=== PATIENT | female | born 1990 | race Caucasian/White ===

== ENCOUNTER 2017-04-19 16:32 | Emergency (ER) | payer OTHER ==
[2017-04-19 16:35] VITALS: BP 118/70; PULSE 78; TEMP 98; BMI 25.0
--- NOTE | 2017-04-19 17:27 | PDOC ---
History of Present Illness - General Chief Complaint: Toothache Stated Complaint: TOOTH PAIN Time Seen by Provider: 04/19/17 17:01 History Source: Patient Exam Limitations: No Limitations - History of Present Illness Initial Comments: 04/19/17 17:12 c/o left lower toothache with swelling today, pain started 4 days ago Past History - Past Medical History Allergies/Adverse Reactions: Allergies Allergy/AdvReac Type Severity Reaction Status Date / Time No Known Allergies Allergy Verified 04/19/17 16:33 Home Medications: Ambulatory Orders Oxycodone HCl/Acetaminophen [Percocet 5-325 mg Tablet] 1 - 2 tab PO Q4H PRN #30 tablet MDD 8 03/06/16 Amoxicillin - [Amoxicillin 500mg Capsule -] 500 mg PO TID #21 capsule 04/19/17 Chlorhexidine Gluconate [Peridex -] 15 ml MM TID #473 ml 04/19/17 Anemia: No Asthma: No Cancer: No Cardiac Disorders: No CVA: No COPD: No CHF: No Dementia: No Diabetes: No GI Disorders: No Disorders: No HTN: No Hypercholesterolemia: No Liver Disease: No Seizures: No Thyroid Disease: No - Surgical History Abdominal Surgery: Yes Appendectomy: No Cardiac Surgery: No Cholecystectomy: Yes Lung Surgery: No Neurologic Surgery: No Orthopedic Surgery: No - Immunization History Immunization Up to Date: Yes - Suicide/Smoking/Psychosocial Hx Smoking History: Never smoked Have you smoked in the past 12 months: No Hx Alcohol Use: No Drug/Substance Use Hx: No Substance Use Type: None *Physical Exam - Vital Signs Last Vital Signs Temp Pulse Resp BP Pulse Ox 98.0 F 78 18 118/70 100 04/19/17 16:33 04/19/17 16:33 04/19/17 16:33 04/19/17 16:33 04/19/17 16:33 - Physical Exam General Appearance: Yes: Nourished, Appropriately Dressed HEENT: positive: EOMI, HARDEEP, TMs Normal, Other (left lower jaw with swelling, minimal tenderness to palpation, no abscess, tender around the gum line ) Neck: positive: Supple. negative: Tender Respiratory/Chest: positive: Lungs Clear, Normal Breath Sounds. negative: Chest Tender Medical Decision Making - Medical Decision Making 04/19/17 17:27 cc: toothache with swelling to the left lower jaw no fever no chills pt is able to tolerate fluids well pt refused any pain medication states the pain is tolerable. pt has a dentist to follow with and will call tomorrow *DC/Admit/Observation/Transfer Diagnosis at time of Disposition: Tooth infection - Discharge Dispostion Disposition: HOME Condition at time of disposition: Good - Prescriptions Prescriptions: Amoxicillin - [Amoxicillin 500mg Capsule -] 500 mg PO TID #21 capsule Chlorhexidine Gluconate [Peridex -] 15 ml MM TID #473 ml - Referrals Referrals: Anam Mallory MD [Primary Care Provider] - - Patient Instructions Additional Instructions: take the antibiotic as prescribed take ibuprofen 800mg every 6hr s for pain use the mouth rinse as prescribed - Post Discharge Activity
== END 2017-04-19 17:56 | disposition home or self-care (01) ==
LOC: JERFT 16:32
DX: K08.89 Other specified disorders of teeth and supporting structures (principal); K04.7 Periapical abscess without sinus
CPT/HCPCS: 99281-25

== ENCOUNTER 2018-05-17 16:28 | Emergency (ER) | payer SELFPAY ==
[2018-05-17] MEDS ORDERED: DIPHTH,PERTUSS(ACELL),TET 0.5 ML DISP.SYRIN IM ONE ×2 (17:02→17:38)
--- NOTE | 2018-05-17 17:02 | PDOC ---
Rapid Medical Evaluation Chief Complaint: Laceration Medical Evaluation: Allergies Allergy/AdvReac Type Severity Reaction Status Date / Time No Known Allergies Allergy Verified 04/19/17 16:33 05/17/18 17:01 I have performed a brief in-person evaluation of this patient. The patient presents with a chief complaint of:staqb wound to left hand/ web space 1,2digits Pertinent physical exam findings: FROM to thumb, no active bleed I have ordered the following: Boostrix The patient will proceed to the ED for further evaluation. Discharge Disposition - Diagnosis Hand laceration - Discharge Dispostion Condition at time of disposition: Stable - Referrals Referrals: Anam Mallory MD [Primary Care Provider] - - Patient Instructions - Post Discharge Activity
[2018-05-17 17:06] VITALS: BP 125/77; PULSE 75; TEMP 97.9; BMI 25.7
--- NOTE | 2018-05-17 17:51 | PDOC ---
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 She is not current on tetanus. Past History - Past Medical History Allergies/Adverse Reactions: Allergies Allergy/AdvReac Type Severity Reaction Status Date / Time No Known Allergies Allergy Verified 05/17/18 17:03 Home Medications: Ambulatory Orders NK [No Known Home Medication] 05/17/18 Anemia: No Asthma: No Cancer: No Cardiac Disorders: No CVA: No COPD: No CHF: No Dementia: No Diabetes: No GI Disorders: No Disorders: No HTN: No Hypercholesterolemia: No Liver Disease: No Seizures: No Thyroid Disease: No - Surgical History Abdominal Surgery: Yes Appendectomy: No Cardiac Surgery: No Cholecystectomy: Yes Lung Surgery: No Neurologic Surgery: No Orthopedic Surgery: No - Immunization History Immunization Up to Date: Yes - Suicide/Smoking/Psychosocial Hx Smoking History: Never smoked Have you smoked in the past 12 months: No Information on smoking cessation initiated: No Hx Alcohol Use: No Drug/Substance Use Hx: No Substance Use Type: None Review of Systems - Review of Systems Integumentary: Yes: See HPI *Physical Exam - Vital Signs Last Vital Signs Temp Pulse Resp BP Pulse Ox 97.9 F 75 18 125/77 100 05/17/18 17:01 05/17/18 17:01 05/17/18 17:01 05/17/18 17:01 05/17/18 17:01 - Physical Exam Comments: 05/17/18 17:48 Left hand skin color and temperature are normal. There is a small superficial subcentimeter laceration puncture wound in the first webspace no subcutaneous fat is exposed. There are no gross sensorimotor deficits. NVID 05/17/18 17:48 Moderate Sedation - Procedure Monitoring Vital Signs: Procedure Monitoring Vital Signs Temperature 97.9 F 05/17/18 17:01 Pulse Rate 75 05/17/18 17:01 Respiratory Rate 18 05/17/18 17:01 Blood Pressure 125/77 05/17/18 17:01 O2 Sat by Pulse Oximetry (%) 100 05/17/18 17:01 ED Treatment Course - Medications Given in the ED: ED Medications Discontinued Medications Generic Name Dose Route Start Last Admin Trade Name Ian PRN Reason Stop Dose Admin Diphtheria/Tetanus/Acell Pertussis 0.5 ml 05/17/18 17:02 05/17/18 17:42 Boostrix - IM 05/17/18 17:03 0.5 ml ONCE ONE Administration Medical Decision Making - Medical Decision Making 05/17/18 17:49 Tetanus was updated. This wound does not require sutures. The edges were loosely approximated with one single Steri-Strip. Wound care instructions were given. *DC/Admit/Observation/Transfer Diagnosis at time of Disposition: Puncture wound Diagnosis at time of Disposition: (Ruled Out): Hand laceration - Discharge Dispostion Disposition: HOME Condition at time of disposition: Stable Decision to Admit order: No - Referrals Referrals: Anam Mallory MD [Primary Care Provider] - Griffin Catalan MD [Staff Physician] - - Patient Instructions Printed Discharge Instructions: DI for Laceration Repair Steri-Strips Additional Instructions: Return to the emergency room should symptoms worsen or go unresolved. Please follow-up with hand surgery in 2-3 days for further evaluation and treatment options. Keep the wound clean and dry for the next 48 hours after 48 hours and may wash the area gently with soap and water and do not scrub the area. The Steri-Strips will fall off by itself. He may take Tylenol and Motrin as directed for pain. - Post Discharge Activity
== END 2018-05-17 17:55 | disposition home or self-care (01) ==
LOC: JER 16:28
PROC: 3E0234Z Introduction of Serum, Toxoid and Vaccine into Muscle, Percutaneous Approach (ICD-10-PCS; principal; 2018-05-17)
DX: S61.432A Puncture wound without foreign body of left hand, initial encounter (principal); W27.4XXA Contact with kitchen utensil, initial encounter; Y93.89 Activity, other specified; Y92.038 Other place in apartment as the place of occurrence of the external cause; Y99.8 Other external cause status
CPT/HCPCS: 90715; 99282-25

== ENCOUNTER 2018-11-24 10:46 | Emergency (ER) | payer SELFPAY ==
[2018-11-24 10:56] VITALS: BP 110/68; PULSE 78; TEMP 98.4; BMI 29.9
[2018-11-24] MEDS ORDERED: LIDOCAINE HCL 1%, 10 MG/ML (20ML VIAL) ONE (11:42)
[2018-11-24 12:08] LABS: EPI CELLS 5.9 /HPF (0-5/HPF); HYALINE CASTS 4 /lpf (0-8); PH,URINE 6.5 (5.0-8.0); URINE APPEARANCE CLEAR; URINE BILIRUBIN NEGATIVE (NEGATIVE); URINE COLOR YELLOW; URINE GLUCOSE (UA) NEGATIVE (NEGATIVE); URINE KETONE NEGATIVE (NEGATIVE); URINE LEUK ESTERASE NEGATIVE (NEGATIVE); URINE NITRITE NEGATIVE (NEGATIVE); URINE PROTEIN NEGATIVE (NEGATIVE); URINE RBC 12 /hpf (0-4); URINE WBC 2 /hpf (0-5)
--- NOTE | 2018-11-24 12:15 | PDOC ---
History of Present Illness - General Chief Complaint: Rash Stated Complaint: vaginal rash Time Seen by Provider: 11/24/18 11:12 History Source: Patient - History of Present Illness Timing/Duration: reports: other Past History - Past Medical History Allergies/Adverse Reactions: Allergies Allergy/AdvReac Type Severity Reaction Status Date / Time No Known Allergies Allergy Verified 11/24/18 10:55 Home Medications: Ambulatory Orders Clindamycin [Cleocin -] 300 mg PO Q6HPO #28 capsule 11/24/18 Anemia: No Asthma: No Cancer: No Cardiac Disorders: No CVA: No COPD: No CHF: No Dementia: No Diabetes: No GI Disorders: No Disorders: No HTN: No Hypercholesterolemia: No Liver Disease: No Seizures: No Thyroid Disease: No - Surgical History Abdominal Surgery: Yes Appendectomy: No Cardiac Surgery: No Cholecystectomy: Yes Lung Surgery: No Neurologic Surgery: No Orthopedic Surgery: No - Immunization History Immunization Up to Date: Yes - Suicide/Smoking/Psychosocial Hx Smoking History: Never smoked Have you smoked in the past 12 months: No Information on smoking cessation initiated: No Hx Alcohol Use: No Drug/Substance Use Hx: No Substance Use Type: None Review of Systems - Review of Systems Constitutional: No: Chills, Fever *Physical Exam - Vital Signs Last Vital Signs Temp Pulse Resp BP Pulse Ox 98.4 F 78 18 110/68 100 11/24/18 10:54 11/24/18 10:54 11/24/18 10:54 11/24/18 10:54 11/24/18 10:54 - Physical Exam General Appearance: Yes: Appropriately Dressed, Mild Distress HEENT: positive: Normal Voice Neck: positive: Supple Respiratory/Chest: negative: Respiratory Distress Female Pelvic Exam: positive: other (2x1cm R labial abscess ) Gastrointestinal/Abdominal: positive: Soft. negative: Tender Integumentary: positive: Dry, Warm Neurologic: positive: Fully Oriented, Alert, Normal Mood/Affect Procedures - Incision and Drainage I&D Site: Right: Other (labial majora) Anesthesia: 1% Lidocaine Volume(ml): 8 Blade Size: 11 Attempts: 1 (copious amount of purulent discharge) Plain Packing: Yes Complications: none Dressing: No (bacitracin, sanitary napkin to collect discharge) Medical Decision Making - Medical Decision Making 11/24/18 12:04 28 yo F, no sig hx, here w/ multiple areas of painful swelling to vaginal area x 3 days, states 1 lesion popped w/ purulent secretion. Hurts to sit. No recent trauma. No f/c See exam L labial abscess S/p I&D w/ packing placement Tetanus UTD Abx Wound check in 2 days *DC/Admit/Observation/Transfer Diagnosis at time of Disposition: Labial abscess - Discharge Dispostion Disposition: HOME Condition at time of disposition: Improved - Prescriptions Prescriptions: Clindamycin [Cleocin -] 300 mg PO Q6HPO #28 capsule - Referrals - Patient Instructions Printed Discharge Instructions: Vulvar Abscess Additional Instructions: Keep wound clean and dry x 2 days and use pad to collect pus/blood Take antibiotics as directed, motrin for pain as needed Return in 2 days for wound check and packing removal - Post Discharge Activity Forms/Work/School Notes: Back to Work
== END 2018-11-24 13:00 | disposition home or self-care (01) ==
LOC: JERFT 10:46
PROC: 0U9MXZZ Drainage of Vulva, External Approach (ICD-10-PCS; principal; 2018-11-24)
DX: N76.4 Abscess of vulva (principal)
CPT/HCPCS: 81003; 84703; 99282-25

== ENCOUNTER 2018-11-27 10:06 | Emergency (ER) | payer SELFPAY | END 2018-11-27 10:38 | disposition home or self-care (01) | LOC: JER 10:06 → JERFT 10:38 ==

== ENCOUNTER 2019-06-13 22:57 | Emergency (ER) | payer OTHER ==
[2019-06-13 23:08] VITALS: BP 130/73; PULSE 63; TEMP 98.1; BMI 29.9
--- NOTE | 2019-06-14 02:55 | PDOC ---
*Physical Exam - Vital Signs Last Vital Signs Temp Pulse Resp BP Pulse Ox 98.1 F 63 19 130/73 100 06/13/19 23:05 06/13/19 23:05 06/13/19 23:05 06/13/19 23:05 06/13/19 23:05 Medical Decision Making - Medical Decision Making 06/14/19 02:55 Patient seen by the advanced practice provider under my supervision. Ancillary testing reviewed as necessary. I agree with plan as outlined by the advanced practice provider. Discharge - Discharge Information Problems reviewed: Yes Clinical Impression/Diagnosis: Abdominal pain, left upper quadrant Disposition: HOME - Additional Discharge Information Prescriptions: Mag Hydrox/Al Hydrox/Simeth [Mylanta Suspension -] 30 ml PO Q6H PRN #1 bottle PRN Reason: Gas - Follow up/Referral Referrals: Amy Mcdaniel MD [Primary Care Provider] - - Patient Discharge Instructions Patient Printed Discharge Instructions: DI for Abdominal Pain-Adult Additional Instructions: Drink plenty of fluids. Avoid gas producing food take Maalox as prescribed.. Follow-up with your doctor soon as possible Return to the emergency room if pain is worse, nausea vomiting fever or any worsening symptoms - Post Discharge Activity Work/Back to School Note: Back to Work
[2019-06-14] MEDS ORDERED: FAMOTIDINE 20 MG TABLET PO ONE (02:58)
[2019-06-14] MEDS ORDERED: ONDANSETRON *ODT* 4 MG TABLET SL ONE (02:58)
[2019-06-14] MEDS ORDERED: MAG HYDROX/AL HYDROX/SIMETH 30 ML UNIT-DOSE CUP PO ONE (02:58)
--- NOTE | 2019-06-14 02:58 | PDOC ---
History of Present Illness - General Chief Complaint: Pain Stated Complaint: ABD PAIN Time Seen by Provider: 06/14/19 02:51 - History of Present Illness Initial Comments: 06/14/19 03:02 28-year-old female complaining of generalized abdominal pain 1 hour prior to arrival. Patient reports that the symptoms has subsided. Reports slight nausea at this time. Past surgical history of cholecystectomy, hernia repair Denies vomiting diarrhea, constipation, urinary symptoms Past History - Past Medical History Allergies/Adverse Reactions: Allergies Allergy/AdvReac Type Severity Reaction Status Date / Time No Known Allergies Allergy Verified 06/14/19 00:57 Home Medications: Ambulatory Orders Mag Hydrox/Al Hydrox/Simeth [Mylanta Suspension -] 30 ml PO Q6H PRN #1 bottle Anemia: No Asthma: No Cancer: No Cardiac Disorders: No CVA: No COPD: No CHF: No Dementia: No Diabetes: No GI Disorders: No Disorders: No HTN: No Hypercholesterolemia: No Liver Disease: No Seizures: No Thyroid Disease: No - Surgical History Abdominal Surgery: Yes Appendectomy: No Cardiac Surgery: No Cholecystectomy: Yes Lung Surgery: No Neurologic Surgery: No Orthopedic Surgery: No - Immunization History Immunization Up to Date: Yes - Psycho Social/Smoking Cessation Hx Smoking History: Never smoked Have you smoked in the past 12 months: Yes Number of Cigarettes Smoked Daily: 0 Hx Alcohol Use: No Drug/Substance Use Hx: No Substance Use Type: None Review of Systems - Review of Systems Able to Perform ROS?: Yes Is the patient limited Dominican proficient: No Constitutional: No: Symptoms Reported, See HPI, Chills, Diaphoresis, Fever, Loss of Appetite, Malaise, Night Sweats, Weakness, Weight Stable, Unintentional Wgt. Loss, Unexplained wgt Loss, Other ABD/GI: Yes: Nausea, Abdominal cramping. No: Symptoms Reported, See HPI, Abdominal Distended, Abd. Pain w/ defecation, Blood Streaked Bowels, Constipated , Diarrhea, Difficulty Swallowing, Poor Appetite, Poor Fluid Intake, Rectal Bleeding, Vomiting, Indigestion, Tarry Stools, Other : No: Symptoms Reported, See HPI, Burning, Dysuria, Discharge, Frequency, Flank Pain, Hematuria, Incontinence, Pain, Urgency, Testicular Mass, Testicular Swelling, Lesions, Testicular Pain, Other *Physical Exam - Vital Signs Last Vital Signs Temp Pulse Resp BP Pulse Ox 98.1 F 63 19 130/73 100 06/13/19 23:05 06/13/19 23:05 06/13/19 23:05 06/13/19 23:05 06/13/19 23:05 - Physical Exam General Appearance: Yes: Appropriately Dressed Respiratory/Chest: positive: Lungs Clear, Normal Breath Sounds Gastrointestinal/Abdominal: positive: Normal Bowel Sounds, Tender (LUQ) Musculoskeletal: positive: Normal Inspection. negative: CVA Tenderness Integumentary: positive: Normal Color, Dry, Warm Neurologic: positive: Fully Oriented, Alert ED Progress Note - Progress Note Progress Note: A: abdominal pain P: pepcid maalox zofran UA urine Discharge - Discharge Information Problems reviewed: Yes Clinical Impression/Diagnosis: Abdominal pain, left upper quadrant Disposition: HOME - Additional Discharge Information Prescriptions: Mag Hydrox/Al Hydrox/Simeth [Mylanta Suspension -] 30 ml PO Q6H PRN #1 bottle PRN Reason: Gas - Follow up/Referral Referrals: Amy Mcdaniel MD [Primary Care Provider] - - Patient Discharge Instructions Patient Printed Discharge Instructions: DI for Abdominal Pain-Adult Additional Instructions: Drink plenty of fluids. Avoid gas producing food take Maalox as prescribed.. Follow-up with your doctor soon as possible Return to the emergency room if pain is worse, nausea vomiting fever or any worsening symptoms - Post Discharge Activity Work/Back to School Note: Back to Work
[2019-06-14] MEDS ORDERED: FAMOTIDINE 20 MG TABLET ONE (03:05)
[2019-06-14] MEDS ORDERED: ONDANSETRON *ODT* 4 MG TABLET ONE (03:06)
[2019-06-14] MEDS ORDERED: MAG HYDROX/AL HYDROX/SIMETH 30 ML UNIT-DOSE CUP ONE (03:06)
[2019-06-14 03:45] LABS: URINE APPEARANCE CLEAR; URINE BILIRUBIN NEGATIVE (NEGATIVE); URINE COLOR YELLOW; URINE GLUCOSE (UA) NEGATIVE (NEGATIVE); URINE KETONE NEGATIVE (NEGATIVE); URINE LEUK ESTERASE NEGATIVE (NEGATIVE); URINE NITRITE NEGATIVE (NEGATIVE); URINE PROTEIN NEGATIVE (NEGATIVE)
== END 2019-06-14 04:22 | disposition home or self-care (01) ==
LOC: JER 22:57
DX: R10.12 Left upper quadrant pain (principal); R14.1 Gas pain; Z90.49 Acquired absence of other specified parts of digestive tract
CPT/HCPCS: 81003; 84703; 99284-25; Q0162

== ENCOUNTER 2020-03-31 15:35 | Emergency (ER) | payer OTHER ==
[2020-03-31 15:51] VITALS: BP 115/72; PULSE 112; TEMP 99.1; BMI 26.6
[2020-03-31] MEDS ORDERED: IBUPROFEN 600 MG TABLET (FP) PO ONE ×2 (16:29→16:30)
== END 2020-03-31 16:43 | disposition home or self-care (01) ==
LOC: JERFT 15:35
DX: U07.1 COVID-19 (principal)
CPT/HCPCS: 99283-25; C9803; U0003

== ENCOUNTER 2021-06-06 04:13 | Day surgery (SDC) | payer OTHER ==
[2021-06-04 15:56] VITALS: BMI 30.7
[2021-06-06] MEDS ORDERED: BUPIVACAINE HCL/PF 0.5% (5MG/ML) 10 ML VIAL ONE (10:19)
[2021-06-06] MEDS ORDERED: BUPIVACAINE HCL/PF 0.5% (5MG/ML) 10 ML VIAL IJ ONE ×3 (11:10→13:45)
[2021-06-06] MEDS ORDERED: PROPOFOL 20 ML ONE (11:46)
[2021-06-06] MEDS ORDERED: ROCURONIUM BROMIDE 50 MG/5 ML SYRINGE ONE (11:46)
[2021-06-06] MEDS ORDERED: MIDAZOLAM HCL 2 MG/2 ML SINGLE DOSE VIAL ONE ×2 (11:47)
[2021-06-06] MEDS ORDERED: fentaNYL CITRATE 250 MCG/5 ML VIAL ONE (11:47)
[2021-06-06] MEDS ORDERED: ceFAZolin SODIUM 1 GM VIAL ONE (12:07)
[2021-06-06] MEDS ORDERED: DEXAMETHASONE SOD PHOSPHATE 4 MG/1 ML VIAL ONE (12:07)
[2021-06-06] MEDS ORDERED: KETOROLAC TROMETHAMINE 30 MG/1 ML VIAL ONE (12:07)
[2021-06-06] MEDS ORDERED: ceFAZolin 2 GRAM PREMIX BAG IVPB ONE ×2 (12:10→12:15)
[2021-06-06] MEDS ORDERED: NEOSTIGMINE METHYLSULFATE 0.5 MG/ML - 10 ML MDV ONE (13:55)
[2021-06-06] MEDS ORDERED: ONDANSETRON 4 MG/2 ML VIAL IVPUSH PRN (15:06)
[2021-06-06] MEDS ORDERED: oxyCODONE HCL 5 MG TABLET PO PRN (15:06)
[2021-06-06] MEDS ORDERED: ACETAMINOPHEN 1000 MG/100 ML BAG IVPB ONE (15:07)
[2021-06-06] MEDS ORDERED: LACTATED RINGERS SOLUTION 1,000 ML IV SCH (15:15)
[2021-06-06] MEDS ORDERED: oxyCODONE HCL 5 MG TABLET ONE (17:58)
[2021-06-06 20:05] VITALS: BP 107/58; PULSE 78; TEMP 98
== END 2021-06-06 20:52 | disposition home or self-care (01) ==
LOC: JASU-SURG 04:13
PROVIDERS: ATTEND Surgery
PROC: 0WUF4JZ Supplement Abdominal Wall with Synthetic Substitute, Percutaneous Endoscopic Approach (ICD-10-PCS; principal; 2021-06-06 12:00)
DX: K43.0 Incisional hernia with obstruction, without gangrene (principal)
CPT/HCPCS: 73610-TC-RT-FY; 73630-TC-RT-FY; 81025; 88302-TC; 93971-TC; 94760; J0131